=== PATIENT | female | born 2000 | race Caucasian/White ===

== ENCOUNTER 2025-02-26 07:45 | Inpatient (IN) ==
[2025-02-26] MEDS ORDERED: LIDOCAINE 1% LOCAL 20 ML VIAL INFIL PRN (08:13)
[2025-02-26] MEDS ORDERED: OXYTOCIN 30 UNITS/NSS 30 UNITS/500 ML BAG IV PRN ×2 (08:13→20:24)
[2025-02-26] MEDS: LACTATED RINGER'S 1,000 ML IV PRN (08:24)
[2025-02-26 08:51] LABS: Hematocrit (blood only) 36.0 % (37.0-47.0); Hemoglobin 12.3 g/dl (12.0-16.0); Mean Corpuscular Hemoglobin 29.5 pg (25.0-34.0); Mean Corpuscular Volume 86.3 fL (80.0-100.0); Platelet Count 216 K/uL (130-400); RDW Standard Deviation 40.2 fL (36.4-46.3); Red Blood Count 4.17 M/uL (4.20-5.40); White Blood Count 14.86 K/ul (4.8-10.8)
--- NOTE | 2025-02-26 09:05 | History & Physical Report ---
Date of Service February 26, 2025 Assessment & Plan (1) Encounter for supervision of normal intrauterine in primigravida, antepartum: Plan Patient feels well today. Eating well, voiding well, ambulating well. 4cm dilation. Dr. Joseph manually performed AROM. Continue to monitor for possible delivery today. Admission and Anticipated Discharge Date Admission Date: February 26, 2025 History of Present Illness Chief Complaint: Labor Primary Care Provider: Saul Angeles PA-C Ms. Braden is a 24 y.o. currently at 40W6D with an GEOVANNI 02/20/25 as determined by Ultrasound who is here due to labor. She has no complications. She has having contractions 5 min apart, however last contraction was 15 minutes ago. Confirms movement. Reports few tablespoons of fluid loss. Denies bloody show. Category 1 tracing; moderate FHT variability Had regular appointments with OB. Allergies Allergy/AdvReac Type Severity Reaction Status Date / Time No Known Allergies Allergy Verified 02/26/25 08:07 Home Medications Medication Instructions Recorded Confirmed Type xjklvnxs-xjk-Wb-FA 1 tab PO DAILY 06/23/24 02/26/25 History [ Plus] Patient History Medical History No acute medical problems Surgical History No pertinent past surgical history Family History Grandfather (Maternal) Prostate cancer Other No pertinent family history Denies family history of Ovarian cancer Breast cancer Colorectal cancer Social History (Updated 02/26/25 @ 08:07 by Hoda Saldivar RN) Smoking Status: Never smoker Do You Dip or Chew Tobacco: No; Hx Alcohol Use: No Hx Substance Use: No Preferred Language: Bahamian Communication Ability: Effective 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 Physical Exam Constitutional: WD/WN, vitals as above Respiratory: normal respiratory effort, lungs clear to auscultation Cardiovascular: RRR, no murmur, no edema Gastrointestinal (Abdomen): Inspection/Auscultation: abdomen normal to inspection (gravid nt) Skin: no rashes, warm and dry Psychiatric: A+Ox3, euthymic affect Genitourinary: OB Exam Monitor Tracing: + external FHT monitor used, + external uterine monitor used, + category I and + normal FHT variability Lymphatic: No LE edema, Jens sign negative bilaterally Results & Data Vital Signs (Past 12 Hours) Vital Signs Temp Pulse Resp BP Pulse Ox 02/26/25 09:03 77 99 02/26/25 08:58 84 98 02/26/25 08:53 80 99 02/26/25 08:06 36.8 C 18 02/26/25 08:00 88 138/84 Laboratory Results Blood Type O Positive 06/26/24 Antibody Screen NEGATIVE 06/26/24 Hgb 12.2 g/dl (12.0-16.0) 02/19/25 Hct 35.2 % (37.0-47.0) L 02/19/25 MCV 86.1 fL (80.0-100.0) 02/19/25 Plt Count 227 K/uL (130-400) 02/19/25 Rubella IgG Antibody Immune (Immune) 06/26/24 Treponema pallidum Ab Negative (Negative) 11/27/24 Hep Bs Antigen Negative (Negative) 06/26/24 Hepatitis C Antibody Negative (Negative) 06/26/24 HIV 1&2 Ab/P24 Ag 4thGn Negative (Negative) 06/26/24 Glucose 1 Hr 50 gm 152 mg/dl (70-130) H 11/27/24 Monitoring External Monitor FHR - 138, accelerations present, no decelerations present, irregular contractions Supervising Physician Co-Signing Physician Notes Resident Physician Supervision Note: I was present with Dr. Love during the history and exam. I discussed the case with the resident and agree with the findings and plan as documented in the note. Any exceptions or clarifications are listed here: 24yo at 40+wks ega presents to with regular ctx. Contractions started and worsened and arrived for labor check and nursing examined pt to be 4cm dilated, with regular ctx. No rom. No vb. +FM. 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 Exam: abd soft gravid nt, efw 7-8#, ext nt calves, toco irregular, not traced well, fhts categ 1, one variable noted, did not repeat. sve 4-5cm/80/-2, arom clear. A/P normal labor, admit, iv, labs, fhts categ 1. epidural in place. add pit aug as needed. Documented By: Niyah Joseph MD, FACOG Resident Activity Tracking Resident Involvement: Resident Care Provided Care Provided: Adult Hospital Medicine
[2025-02-26] MEDS ORDERED: NALOXONE HCL 0.4 MG/1 ML VIAL/CARP IV PRN (09:14)
[2025-02-26] MEDS ORDERED: NALOXONE HCL 1 MG in SODIUM CHLORIDE 0.9% 1,000 ML IV PRN (09:14)
[2025-02-26] MEDS ORDERED: SODIUM CHLORIDE 0.9% PF INJ 10 ML VIAL EPI PRN (09:14)
[2025-02-26] MEDS ORDERED: PROMETHAZINE 6.25 MG/50.25 ML BAG IV PRN (09:14)
[2025-02-26] MEDS ORDERED: BUPIVACAINE 0.25% PF 30 ML VIAL EPI PRN (09:14)
[2025-02-26] MEDS ORDERED: LIDOCAINE 2% MPF LOCAL 5 ML VIAL EPI PRN (09:14)
[2025-02-26] MEDS ORDERED: NALBUPHINE HCL INJ 10 MG/ML AMP IV PRN (09:14)
[2025-02-26] MEDS ORDERED: ONDANSETRON INJ 2 MG/ML 2 ML VIAL IV PRN (09:14)
[2025-02-26] MEDS ORDERED: ROPIVACAINE 0.5% PF 5 MG/ML 20 ML VIAL EPI PRN (09:14)
[2025-02-26] MEDS ORDERED: diphenhydrAMINE 50 MG/ML VIAL IV PRN (09:14)
--- NOTE | 2025-02-26 09:14 | Anesthesiology Consultation ---
Date of Service February 26, 2025 Assessment & Plan Chart Review Chart Review: Patient NOT seen in Pre Admission Testing and Acceptable Risk for Labor Epidural Consults Requested none ASA ASA2 Proposed Anesthesia Anesthesia Type: Labor Epidural Risk / Benefits Reviewed With: PT / POA / Parent / Guardian, Accepts Plan and Informed Consent Obtained History Height/Weight Height: 5 ft 6 in Weight: 92.986 kg Allergies Allergy/AdvReac Type Severity Reaction Status Date / Time No Known Allergies Allergy Verified 02/26/25 08:07 Medications Home Medications Medication Instructions Recorded Confirmed Last Taken pxtedjhq-aum-Sx-FA 1 tab PO DAILY 06/23/24 02/26/25 Unknown [ Plus] Active Medications Generic Name Dose Route Start Last Admin Trade Name Freq PRN Reason Stop Dose Admin Lactated Ringer's 1,000 mls @ 125 mls/hr 02/26/25 08:13 02/26/25 08:24 Lr IV 02/28/25 08:12 999 mls/hr .Q8H PRN Administration L&D Protocol Protocol Past Medical History Medical History No acute medical problems Exercise / Class Metabolic Activity II 4-5 Yardwork/Stairs/Walk up hill Past Family History Family History Grandfather (Maternal) Prostate cancer Other No pertinent family history Denies family history of Ovarian cancer Breast cancer Colorectal cancer Past Surgical History Surgical History No pertinent past surgical history Past Anesthesia History No Hx of Anesthesia Complications and No Family Hx of Anesthesia Complications History of PONV No Hx of PONV and No Hx of Motion Sickness Social History Smoking Status: Never smoker Do You Dip or Chew Tobacco: No Hx Alcohol Use: No Hx Substance Use: No substance use type: does not use Physical Exam Vital Signs Last Vital Signs Temp 36.8 C 02/26/25 08:06 Pulse 76 02/26/25 09:08 Resp 18 02/26/25 08:06 BP 138/84 02/26/25 08:00 Pulse Ox 97 02/26/25 09:08 ENMT Mouth: no dentition abnormality Thyromental Distance: > or= 3.5 Finger Breadths Mallampati Class: II Neck normal visual inspection Respiratory normal respiratory effort Auscultation: lungs clear to auscultation bilaterally Cardiovascular Rate/Rhythm: regular rate and regular rhythm Psychiatric Orientation: alert Testing Laboratory Results 02/26/25 08:27
[2025-02-26] MEDS: fentANYL 2 MCG/ML BUPIVacaine 0.125%-NSS 100ML BAG ONE (09:32)
[2025-02-26] MEDS: LIDOCAINE 2%/EPINEPHRINE 1:200,000 20 ML PF ONE (09:33)
[2025-02-26] MEDS: BUPIVACAINE 0.25% PF 30 ML VIAL ONE (09:33)
[2025-02-26] MEDS: SODIUM CHLORIDE 0.9% PF INJ 10 ML VIAL ONE (09:33)
[2025-02-26] MEDS: LIDOCAINE 2%/EPINEPHRINE 1:200,000 20 ML PF EPI STA (10:28)
[2025-02-26] MEDS: BUPIVACAINE 0.25% PF 30 ML VIAL EPI STA (10:28)
[2025-02-26] MEDS: SODIUM CHLORIDE 0.9% PF INJ 10 ML VIAL EPI STA (10:28)
[2025-02-26] MEDS: OXYTOCIN 30 UNITS/NSS 30 UNITS/500 ML BAG IV PRN (11:23)
[2025-02-26] MEDS: fentANYL 2 MCG/ML BUPIVacaine 0.125%-NSS 100ML BAG EPI PRN (16:13)
--- NOTE | 2025-02-26 18:55 | Labor Progress Brief Note ---
Date of Service February 26, 2025 Subjective Patient checked due to pushing for 1+ hours with head still at +1 station. She feels a lot of pressure and discomfort in her pelvis though it is somewhat mitigated by pushing efforts. Assessment & Plan (1) Encounter for supervision of normal intrauterine in primigravida, antepartum: Plan: Patient with labor, and reached complete dilation at 17:15pm. She began pushing, and although it has been 1.5 hours, much of her pushing was done with contractions spaced fairly far apart as the fetus was not previously tolerating pitocin augmentation very well. Once pitocin was started at 1 mu/min contractions came closer together. Despite excellent pushing effort, the fetus remains at +1 station. I examined the patient during a pushing effort and found a ear palpable at 12 o'clock / under the pubic symphysis. The fetus is in LOT presentation. Patient and FOB were counseled. This position is not typically compatible with vaginal delivery, though rotation of the head can sometimes be encouraged with maternal positioning and ongoing labor. She was offered options including a temporary halt to pushing with fire-hydrant or other position to encourage rotation, ongoing pushing as-is (not recommended), or proceeding to . Patient wants to be an absolute last resort and at this time elects to hold off pushing and to try maternal repositioning. FHT are currently 150 mod leena -acc +early dec during ctx Pit @ 1 Dasher Q2m Will reassess after 30min of rest in fire-hydrant unless or maternal status indicate for reassessment sooner. Admission and Anticipated Discharge Date Admission Date: February 26, 2025 Physical Exam Genitourinary: FHT Cat 2 appropriate for pushing Dasher Q2-3 Pit @ 1 10/100/+1 Caput is present. presentation is LOT. Clear LOF is noted with elevation of the head during examination. Results & Data Vital Signs (Past 12 Hours) Vital Signs Temp Pulse Resp BP Pulse Ox 02/26/25 18:44 111 H 98 02/26/25 18:39 130 H 95 02/26/25 18:34 131 H 99 02/26/25 18:32 130 H 80 L 02/26/25 18:29 128 H 97 02/26/25 18:24 134 H 97 02/26/25 18:20 126 H 120/53 L 02/26/25 18:19 124 H 98 02/26/25 18:14 144 H 98 02/26/25 18:09 117 H 97 02/26/25 18:07 116 H 82 L 02/26/25 18:05 101 H 123/56 L 02/26/25 18:04 110 H 99 02/26/25 18:00 20 02/26/25 18:00 20 02/26/25 17:59 124 H 90 02/26/25 17:58 116 H 77 L 02/26/25 17:54 122 H 98 02/26/25 17:50 126 H 113/56 L 83 L 02/26/25 17:49 115 H 100 02/26/25 17:45 22 02/26/25 17:45 22 02/26/25 17:44 124 H 100 02/26/25 17:39 132 H 99 02/26/25 17:35 150 H 86 L 02/26/25 17:34 127 H 100 02/26/25 17:30 20 02/26/25 17:30 20 02/26/25 17:29 100 H 98 02/26/25 17:24 133 H 99 02/26/25 17:20 98 H 118/64 02/26/25 17:19 92 H 99 02/26/25 17:14 109 H 98 02/26/25 17:09 99 H 98 02/26/25 17:05 92 H 118/67 02/26/25 17:04 101 H 98 02/26/25 17:03 99.1 F 02/26/25 17:00 20 02/26/25 17:00 20 02/26/25 16:59 93 H 97 02/26/25 16:54 83 98 02/26/25 16:50 78 113/63 02/26/25 16:49 77 97 02/26/25 16:44 96 H 97 02/26/25 16:39 92 H 96 02/26/25 16:34 96 H 119/75 97 02/26/25 16:30 20 02/26/25 16:30 20 02/26/25 16:29 82 97 02/26/25 16:24 85 97 02/26/25 16:21 94 H 120/76 02/26/25 16:19 92 H 98 02/26/25 16:14 88 98 02/26/25 16:09 111 H 97 02/26/25 16:04 98 H 118/71 99 02/26/25 16:00 18 02/26/25 16:00 18 02/26/25 15:59 81 98 02/26/25 15:54 82 97 02/26/25 15:49 98 02/26/25 15:49 88 02/26/25 15:49 95 H 118/69 02/26/25 15:44 94 H 97 02/26/25 15:41 90 119/64 02/26/25 15:39 96 H 97 02/26/25 15:34 92 H 100 02/26/25 15:30 20 02/26/25 15:30 20 02/26/25 15:29 85 98 02/26/25 15:24 85 98 02/26/25 15:19 85 111/71 98 02/26/25 15:14 88 97 02/26/25 15:09 88 98 02/26/25 15:05 96 H 117/77 02/26/25 15:04 92 H 97 02/26/25 15:00 20 02/26/25 15:00 99.1 F 20 02/26/25 14:59 101 H 97 02/26/25 14:54 94 H 96 02/26/25 14:50 98 H 105/68 02/26/25 14:49 97 H 98 02/26/25 14:44 105 H 97 02/26/25 14:39 93 H 97 02/26/25 14:34 102 H 117/65 98 02/26/25 14:30 20 02/26/25 14:30 20 02/26/25 14:29 101 H 98 02/26/25 14:24 104 H 97 02/26/25 14:20 85 117/59 L 02/26/25 14:19 90 97 02/26/25 14:14 106 H 96 02/26/25 14:09 72 97 02/26/25 14:04 75 115/64 98 02/26/25 14:00 20 02/26/25 14:00 20 02/26/25 13:59 86 97 02/26/25 13:54 84 97 02/26/25 13:50 86 117/84 02/26/25 13:49 75 96 08/18/25 13:44 95 H 98 02/26/25 13:39 100 H 98 02/26/25 13:36 82 114/66 02/26/25 13:34 92 H 97 02/26/25 13:30 18 02/26/25 13:30 18 02/26/25 13:29 104 H 98 02/26/25 13:24 85 98 02/26/25 13:20 96 H 132/80 02/26/25 13:19 103 H 98 02/26/25 13:14 68 99 02/26/25 13:09 72 100 02/26/25 13:04 91 H 107/61 100 02/26/25 12:59 98.4 F 86 100 02/26/25 12:54 78 100 02/26/25 12:49 74 102/58 L 100 02/26/25 12:44 74 100 02/26/25 12:39 70 98 02/26/25 12:37 62 98/55 L 02/26/25 12:34 69 100 02/26/25 12:30 20 02/26/25 12:30 20 02/26/25 12:29 71 100 02/26/25 12:24 85 100 02/26/25 12:19 87 118/78 99 02/26/25 12:14 100 02/26/25 12:14 93 H 02/26/25 12:14 86 94 02/26/25 12:09 84 97 02/26/25 12:05 98 H 119/67 02/26/25 12:04 92 H 99 02/26/25 12:00 20 02/26/25 12:00 20 02/26/25 11:59 76 100 02/26/25 11:54 74 99 02/26/25 11:49 99 02/26/25 11:49 82 02/26/25 11:49 79 114/74 02/26/25 11:44 64 99 02/26/25 11:39 72 99 02/26/25 11:35 90 116/74 02/26/25 11:34 73 98 02/26/25 11:30 20 02/26/25 11:30 20 02/26/25 11:29 92 H 98 02/26/25 11:24 83 99 02/26/25 11:20 84 105/77 02/26/25 11:19 85 99 02/26/25 11:14 78 98 02/26/25 11:09 85 99 02/26/25 11:04 84 98/66 L 99 02/26/25 11:00 98.6 F 02/26/25 10:59 71 99 02/26/25 10:54 67 98 02/26/25 10:49 77 102/60 99 02/26/25 10:44 87 98 02/26/25 10:39 74 97 02/26/25 10:34 73 98 02/26/25 10:32 75 105/59 L 02/26/25 10:30 20 02/26/25 10:29 81 98 02/26/25 10:27 79 124/95 02/26/25 10:24 82 99 02/26/25 10:22 77 101/61 02/26/25 10:19 81 98 02/26/25 10:16 80 113/72 02/26/25 10:15 18 02/26/25 10:14 87 99 02/26/25 10:12 77 109/60 02/26/25 10:09 88 99 02/26/25 10:06 87 116/73 02/26/25 10:04 89 99 02/26/25 10:01 83 111/63 02/26/25 10:00 18 02/26/25 09:59 76 99 02/26/25 09:54 84 99 02/26/25 09:49 98.1 F 87 99 02/26/25 09:47 78 101/60 02/26/25 09:45 20 02/26/25 09:44 76 99 02/26/25 09:40 84 108/62 02/26/25 09:39 76 99 02/26/25 09:37 72 99/56 L 02/26/25 09:35 103 H 107/69 02/26/25 09:34 80 98 02/26/25 09:33 81 104/62 02/26/25 09:31 83 102/58 L 02/26/25 09:30 18 02/26/25 09:29 100 02/26/25 09:29 78 02/26/25 09:29 95 H 112/77 02/26/25 09:23 96 H 100 02/26/25 09:18 87 100 02/26/25 09:13 72 99 02/26/25 09:08 76 97 02/26/25 09:03 77 99 02/26/25 08:58 84 98 02/26/25 08:53 80 99 02/26/25 08:06 98.2 F 18 02/26/25 08:00 88 138/84 Coding Level of Care Code None Diagnoses Encounter for supervision of normal intrauterine in primigravida, antepartum Z34.00
--- NOTE | 2025-02-26 19:45 | Communication Note ---
Date of Service: February 26, 2025 At 1930, patient checked by me as she resumed pushing. rotation occurred, and position is now very nearly DOA with a very slight remaining tilt of the occiput to the maternal left, at about 1 o'clock. Pushing efforts resumed in earnest. FHT 140 mod leena +acc -dec. vertex at +2 station.
--- NOTE | 2025-02-26 20:16 | Delivery Summary ---
Vaginal Delivery Summary Date of Service February 26, 2025 Vaginal Delivery Summary DIAGNOSES: 1. Dumont intrauterine at 40w6d gestation. 2. Spontaneous onset of labor. 3. Group B Streptococcus Neg. PROCEDURE: Spontaneous vaginal delivery without laceration. SURGEON: Lucina Goddard MD. VICE PRESIDENT NETWORK DEVELOPMENT: None. QUANTITATIVE BLOOD LOSS: 68 mL. COMPLICATIONS: None. PLACENTA: Spontaneous and intact with a 3-vessel cord. DISPOSITION: Stable to labor and delivery. DESCRIPTION: The patient pushed well and brought the head to in JEFFREY position. The 's head was allowed to deliver with contraction force and no further active pushing, with the perineum protected during this time. There was a tight double nuchal cord which was reduced at the perineum. The right shoulder was anterior. The shoulders and body delivered without any difficulty, and the infant was placed on the maternal abdomen. It was vigorous and moving all extremities, and making respiratory efforts. The cord was doubly clamped by the MD and then cut by the FOB. The placenta delivered spontaneously and was noted to be intact and with a 3VC. The cervix, vagina and perineum were examined and were found to be without defect requiring repair. The fundus was firm and lochia minimal immediately after delivery. [facility] Vaginal Delivery Charge Vaginal Delivery Codes: 27181 global code for the antepartum, delivery, and post-
[2025-02-26] MEDS ORDERED: DIPHTHER/TETAN/PERTUS Vaccine (Tdap, Adol/Adult) 0.5mL IM ONE (20:24)
[2025-02-26] MEDS ORDERED: IBUPROFEN 600 MG TAB PO PRN (20:24)
[2025-02-26] MEDS ORDERED: HYDROCORTISONE ACETATE 25 MG SUPP PR PRN (20:24)
--- NOTE | 2025-02-26 20:56 | Anesthesia Procedure Note ---
Date of Service February 26, 2025 Anesthesia Post Epidural Note Vital Signs Vital Signs: Temp Pulse Resp BP Pulse Ox 37.3 C 125 H 16 136/59 L 96 02/26/25 17:03 02/26/25 20:20 02/26/25 20:15 02/26/25 20:20 02/26/25 20:09 Pain Intensity Abdomen: Pain Intensity: 0 Notes Mental Status: alert / awake / arousable Nausea / Vomiting: adequately controlled Pain: adequately controlled Airway Patency, RR, SpO2: stable & adequate BP & HR: stable & adequate Hydration State: stable & adequate Neuraxial Anesthesia: was administered and sensory block is resolving Anesthetic Complications: no major complications apparent and Pt Satisfied with anesthetic care Epidural: Removed without complications and With tip intact
[2025-02-26] MEDS: DOCUSATE SODIUM 100 MG CAP PO SCH (21:28)
[2025-02-27] MEDS: BENZOCAINE 20% SPRY 85 APPLN/85 GM CAN EXT PRN (01:04)
[2025-02-27] MEDS: ACETAMINOPHEN 325 MG TAB PO PRN (01:04)
--- NOTE | 2025-02-27 05:37 | Obstetrical Progress Note ---
Date of Service <Dalhia Love DO - Last Filed: 02/27/25 06:46> February 27, 2025 Assessment & Plan <Dahlia Love DO - Last Filed: 02/27/25 06:46> (1) care following vaginal delivery: Plan 24 yo post- day 1 s/p . Feels well today. Vital signs stable Continue post- care Encourage ambulation and Pain controlled with ibuprofen Hgb stable Plan to d/c tomorrow depending on patient presentation <Lucina Goddard MD - Last Filed: 02/27/25 06:47> (1) care following vaginal delivery: Subjective <Dahlia Love - Last Filed: 02/27/25 06:46> Ambulation: ambulating normally Voiding: incontinence Passing Gas:: Yes Diet Tolerance:: regular diet Lochia:: Moderate Feeding Type:: breast feeding Current Pain Level(1-10): 0 Patient is feeling well this morning. States she is having some incontinence issues but is otherwise well. Denies SOB, fevers, chills, wheezing, CP, palpitations, breast pain, headache. No other complaints. Review of Systems All systems reviewed & are unremarkable except as noted in HPI & below Physical Exam <DO Colby Heller Last Filed: 02/27/25 06:46> Constitutional WD/WN, vitals as above Respiratory normal respiratory effort, lungs clear to auscultation Cardiovascular RRR, no murmur, no edema Gastrointestinal (Abdomen) normal bowel sounds, soft, nontender, no hepatosplenomegaly Skin no rashes, warm and dry Genitourinary OB Exam Abdomen: + fundal height (+1cm) Fundus: + firm Lymphatic No LE edema, negative Jens sign bilaterally Results & Data <Dahlia Love DO - Last Filed: 02/27/25 06:46> Vital Signs (Past 12 Hours) Vital Signs Temp Pulse Pulse Resp BP BP Pulse Ox 02/27/25 03:10 36.8 C 87 18 107/69 98 02/26/25 23:15 36.9 C 94 H 18 108/70 97 02/26/25 22:19 97 H 103/51 L 02/26/25 22:15 16 02/26/25 22:04 113 H 105/58 L 02/26/25 21:50 100 H 97/55 L 02/26/25 21:35 115 H 111/59 L 02/26/25 21:19 93 H 110/57 L 02/26/25 21:05 91 H 116/59 L 02/26/25 20:20 125 H 136/59 L 02/26/25 20:15 16 02/26/25 20:09 130 H 96 02/26/25 20:07 16 02/26/25 20:07 16 02/26/25 20:06 153 H 118/67 02/26/25 20:05 150 H 85 L 02/26/25 20:04 143 H 97 02/26/25 19:59 137 H 97 02/26/25 19:54 138 H 97 02/26/25 19:53 16 02/26/25 19:53 16 02/26/25 19:51 152 H 86 L 02/26/25 19:49 98 02/26/25 19:49 114 H 02/26/25 19:49 101 H 112/72 02/26/25 19:44 130 H 99 02/26/25 19:39 106 H 99 02/26/25 19:36 121 H 74 L 02/26/25 19:35 96 H 120/75 02/26/25 19:34 103 H 99 02/26/25 19:30 16 02/26/25 19:30 16 02/26/25 19:29 97 H 98 02/26/25 19:24 102 H 99 02/26/25 19:19 112 H 118/68 98 02/26/25 19:14 100 H 98 02/26/25 19:09 104 H 96 02/26/25 19:05 101 H 116/70 02/26/25 19:04 104 H 97 02/26/25 18:59 104 H 99 02/26/25 18:54 93 H 99 02/26/25 18:50 100 H 115/58 L 02/26/25 18:49 118 H 98 02/26/25 18:48 109 H 84 L 02/26/25 18:44 111 H 98 02/26/25 18:39 130 H 95 02/26/25 18:34 131 H 99 02/26/25 18:32 130 H 80 L 02/26/25 18:30 20 02/26/25 18:30 20 02/26/25 18:29 128 H 97 02/26/25 18:24 134 H 97 02/26/25 18:20 126 H 120/53 L 02/26/25 18:19 124 H 98 02/26/25 18:14 144 H 98 02/26/25 18:09 117 H 97 02/26/25 18:07 116 H 82 L 02/26/25 18:05 101 H 123/56 L 02/26/25 18:04 110 H 99 02/26/25 18:00 20 02/26/25 18:00 20 02/26/25 17:59 124 H 90 02/26/25 17:58 116 H 77 L 02/26/25 17:54 122 H 98 02/26/25 17:50 126 H 113/56 L 83 L 02/26/25 17:49 115 H 100 02/26/25 17:45 22 02/26/25 17:45 22 02/26/25 17:44 124 H 100 02/26/25 17:39 132 H 99 O2 Del Method 02/27/25 03:10 Room Air 02/26/25 23:15 Room Air 02/26/25 22:19 02/26/25 22:15 02/26/25 22:04 02/26/25 21:50 02/26/25 21:35 02/26/25 21:19 02/26/25 21:05 02/26/25 20:20 02/26/25 20:15 02/26/25 20:09 02/26/25 20:07 02/26/25 20:07 02/26/25 20:06 02/26/25 20:05 02/26/25 20:04 02/26/25 19:59 02/26/25 19:54 02/26/25 19:53 02/26/25 19:53 02/26/25 19:51 02/26/25 19:49 02/26/25 19:49 02/26/25 19:49 02/26/25 19:44 02/26/25 19:39 02/26/25 19:36 02/26/25 19:35 02/26/25 19:34 02/26/25 19:30 02/26/25 19:30 02/26/25 19:29 02/26/25 19:24 02/26/25 19:19 02/26/25 19:14 02/26/25 19:09 02/26/25 19:05 02/26/25 19:04 02/26/25 18:59 02/26/25 18:54 02/26/25 18:50 02/26/25 18:49 02/26/25 18:48 02/26/25 18:44 02/26/25 18:39 02/26/25 18:34 02/26/25 18:32 02/26/25 18:30 02/26/25 18:30 02/26/25 18:29 02/26/25 18:24 02/26/25 18:20 02/26/25 18:19 02/26/25 18:14 02/26/25 18:09 02/26/25 18:07 02/26/25 18:05 02/26/25 18:04 02/26/25 18:00 02/26/25 18:00 02/26/25 17:59 02/26/25 17:58 02/26/25 17:54 02/26/25 17:50 02/26/25 17:49 02/26/25 17:45 02/26/25 17:45 02/26/25 17:44 02/26/25 17:39 Laboratory Results OB Labs: Blood Type O Positive 06/26/24 Antibody Screen NEGATIVE 06/26/24 Hgb 12.2 g/dl (12.0-16.0) 02/19/25 Hct 35.2 % (37.0-47.0) L 02/19/25 MCV 86.1 fL (80.0-100.0) 02/19/25 Plt Count 227 K/uL (130-400) 02/19/25 Rubella IgG Antibody Immune (Immune) 06/26/24 Treponema pallidum Ab Negative (Negative) 11/27/24 Hep Bs Antigen Negative (Negative) 06/26/24 Hepatitis C Antibody Negative (Negative) 06/26/24 HIV 1&2 Ab/P24 Ag 4thGn Negative (Negative) 06/26/24 Glucose 1 Hr 50 gm 152 mg/dl (70-130) H 11/27/24 OB Optional Labs: Chlamydia trachomatis RNA Not Detected (NotDetected) 06/27/24 Neisseria gonorrhoeae RNA Not Detected (NotDetected) 06/27/24 Thyroid Stimulating Hormone (TSH) 2.919 uIu/ml (0.300-4.500) 03/08/23 Supervising Physician <Lucina Goddard MD - Last Filed: 02/27/25 06:47> Co-Signing Physician Notes Resident Physician Supervision Note: I interviewed and examined the patient. Discussed with Dr. Love and agree with findings and plan as documented in the note. Any exceptions or clarifications are listed here: [ ] Documented By: Lucina Goddard MD, FACOG Resident Activity Tracking <Dahlia Love DO - Last Filed: 02/27/25 06:46> Resident Involvement: Resident Care Provided Care Provided: OB Delivery
[2025-02-27 06:30] LABS: Hematocrit (blood only) 30.6 % (37.0-47.0); Hemoglobin 10.1 g/dl (12.0-16.0); Mean Corpuscular Hemoglobin 28.9 pg (25.0-34.0); Mean Corpuscular Volume 87.4 fL (80.0-100.0); Platelet Count 177 K/uL (130-400); RDW Standard Deviation 41.5 fL (36.4-46.3); Red Blood Count 3.50 M/uL (4.20-5.40); White Blood Count 19.50 K/ul (4.8-10.8)
[2025-02-27] MEDS: PRENATAL VITAMIN 1 TAB PO SCH (08:57)
[2025-02-27 21:28] VITALS: O2SAT 98
[2025-02-28 00:21] VITALS: TEMP 97.9
[2025-02-28 06:20] LABS: Hematocrit (blood only) 29.0 % (37.0-47.0); Hemoglobin 9.8 g/dl (12.0-16.0)
--- NOTE | 2025-02-28 06:31 | Obstetrical Progress Note ---
Date of Service <Dahlia Love DO - Last Filed: 02/28/25 07:11> February 28, 2025 Assessment & Plan <Dahlia Love DO - Last Filed: 02/28/25 07:11> (1) care following vaginal delivery: Plan 24 yo post- day 2 s/p . Feels well today. Vital signs stable Continue post- care Encourage ambulation and Pain controlled with ibuprofen Hgb stable Discharge home today, follow up with Dr. Goddard in 6 weeks. <Mara Navarrete MD, FACOG - Last Filed: 02/28/25 07:28> (1) care following vaginal delivery: Subjective <Dahlia Love DO - Last Filed: 02/28/25 07:11> 24 yo post- day 2 s/p . Ambulation: ambulating normally Voiding: no voiding problems Passing Gas:: Yes Passing Stool: No Diet Tolerance:: regular diet Lochia:: Small Feeding Type:: breast feeding Current Pain Level: 0/10 Resting comfortably this AM in NAD. Denies [place]AN, CP, SOB, N/V/D, LE pain/swelling. Review of Systems All systems reviewed & are unremarkable except as noted in HPI & below Physical Exam <Dahlia Love DO - Last Filed: 02/28/25 07:11> General: patient resting comfortably, NAD, non-toxic in appearance, AA&O x 4, answers questions appropriately. Skin: warm, dry, intact HEENT: NC/AT, anicteric sclera, conjunctiva without injection, moist mucus membranes. Heart: +S1/S2, regular, no m/r/g Lungs: equal air entry bilaterally, no rales/rhonchi/wheezes Abd: +BS, soft, NT/ND, uterine fundus firm at umbilicus Ext: warm, no clubbing/cyanosis or edema, Jens's neg. Neuro: nonfocal, patient AA&O x 4, speech intact, no facial droop, moving all extremities on command. Results & Data <Dahlia Love DO - Last Filed: 02/28/25 07:11> Vital Signs (Past 12 Hours) Vital Signs Temp Pulse Resp BP Pulse Ox O2 Del Method 02/28/25 00:00 36.6 C 94 H 16 114/76 98 Room Air 02/27/25 20:30 36.8 C 99 H 18 118/75 98 Room Air Laboratory Results OB Labs: Blood Type O Positive 06/26/24 Antibody Screen NEGATIVE 06/26/24 Hgb 12.2 g/dl (12.0-16.0) 02/19/25 Hct 35.2 % (37.0-47.0) L 02/19/25 MCV 86.1 fL (80.0-100.0) 02/19/25 Plt Count 227 K/uL (130-400) 02/19/25 Rubella IgG Antibody Immune (Immune) 06/26/24 Treponema pallidum Ab Negative (Negative) 11/27/24 Hep Bs Antigen Negative (Negative) 06/26/24 Hepatitis C Antibody Negative (Negative) 06/26/24 HIV 1&2 Ab/P24 Ag 4thGn Negative (Negative) 06/26/24 Glucose 1 Hr 50 gm 152 mg/dl (70-130) H 11/27/24 OB Optional Labs: Chlamydia trachomatis RNA Not Detected (NotDetected) 06/27/24 Neisseria gonorrhoeae RNA Not Detected (NotDetected) 06/27/24 Thyroid Stimulating Hormone (TSH) 2.919 uIu/ml (0.300-4.500) 03/08/23 Supervising Physician <Mara Navarrete MD, FACOG - Last Filed: 02/28/25 07:28> Co-Signing Physician Notes Resident Physician Supervision Note: I interviewed and examined the patient. Discussed with Dr. Parks and agree with findings and plan as documented in the note. Any exceptions or clarifications are listed here: Doing well. Meeting milestones. Desires d/c. Instructions given. f/u in 6 weeks. Documented By: Mara Navarrete MD, FACOG Resident Activity Tracking <Dahlia Love DO - Last Filed: 02/28/25 07:11> Resident Involvement: Resident Care Provided Care Provided: OB Delivery
[2025-02-28 08:30] VITALS: BP 132/79; RESP 18
[2025-02-28 10:04] VITALS: PULSE 94
== END 2025-02-28 11:05 | disposition home or self-care (01) | DRG 807 ==
LOC: OPB 07:45 → 4S1 07:50 → 4E2 23:15